=== PATIENT | female | born 1945 | race Caucasian/White ===

== ENCOUNTER → 2017-09-29 13:59 | Outpatient (CLI) | payer OTHER | END | disposition home or self-care (01) | LOC: D.CT 13:59 | DX: K11.9 Disease of salivary gland, unspecified (principal) ==

== ENCOUNTER → 2017-11-13 20:02 | Outpatient (CLI) | payer OTHER | END | disposition home or self-care (01) | LOC: D.MAMMO 10-23 10:00 | DX: N64.4 Mastodynia (principal) ==

== ENCOUNTER → 2018-03-12 17:20 | Outpatient (CLI) | payer OTHER | END | disposition home or self-care (01) | LOC: D.CT 16:30 | DX: S09.90XA Unspecified injury of head, initial encounter (principal); X58.XXXA Exposure to other specified factors, initial encounter ==

== ENCOUNTER 2019-10-10 14:11 | Inpatient (IN) | payer OTHER ==
[~2019-10-10] VITALS: Ht 165.1 cm; Wt 86.5 kg
[2019-10-14] MEDS ORDERED: ASPIRIN325 MG PO (15:30)
[2019-10-14] MEDS ORDERED: CYMBALTA30 MG PO (15:31)
[2019-10-14] MEDS ORDERED: CATAPRES0.1 MG PO (15:31)
[2019-10-14] MEDS ORDERED: SYNTHROID25 MCG PO (15:31)
[2019-10-14] MEDS ORDERED: GLUCOPHAGE1000 MG PO (15:32)
[2019-10-14] MEDS ORDERED: GLIMEPIRIDE2 MG PO (15:32)
[2019-10-14] MEDS ORDERED: LISINOPRIL5 MG PO (15:32)
[2019-10-14] MEDS ORDERED: QVAR REDIHALE10.6 G1 INH (15:55)
[2019-10-14] MEDS ORDERED: VENTOLIN HFA [SP8 GM INH (15:55)
[2019-10-14 17:04] LABS: HEMATOCRIT 44.1 % (36.0-48.0); HEMOGLOBIN 14.2 g/dL (12-16); MCH 30.3 pg (26.0-34.0); MCHC 32.2 g/dL (31.0-37.0); MEAN PLATELET VOLUME 8.5 fL (7.4-10.4); RBC 4.69 10x6/uL (4.00-5.40); RDW 13.1 % (11.5-14.5); WBC 8.8 10x3/uL (4.8-10.8)
[2019-10-14 17:18] LABS: ALBUMIN 3.8 g/dL (3.4-5.0); ANION GAP 8.5 mmol/L (8-16); BILIRUBIN - TOTAL 0.17 mg/dL (0.2-1.3); CARBON DIOXIDE 32.7 mmol/L (21.0-32.0); CREATININE - SERUM 0.9 mg/dL (0.6-1.3); POTASSIUM - SERUM 4.2 mmol/L (3.5-5.1); PROTEIN - SERUM 7.6 g/dL (6.4-8.2)
[2019-10-14 17:22] LABS: APTT 27.8 SECONDS (22.8-39.4); INR 0.84 (0.85-1.17); PROTIME 11.5 SECONDS (11.6-15.0)
[2019-10-14 17:28] LABS: BILIRUBIN NEGATIVE (NEGATIVE); GLUCOSE NEGATIVE (NEGATIVE); KETONE NEGATIVE (NEGATIVE); NITRITE NEGATIVE (NEGATIVE); UROBILINOGEN NORMAL (NORMAL)
[2019-10-16] VITALS (78 sets, daily range): BP systolic 94–173; BP diastolic 36–92; BMI 30.8; BMI 31.7
[2019-10-16] MEDS ORDERED: ACETAMINOPHEN500 M1 PO (05:43)
[2019-10-16] MEDS ORDERED: VITAMIN A10000 UNIT PO (05:44)
[2019-10-16] MEDS ORDERED: VIT B COMPLEX (05:44)
[2019-10-16] MEDS ORDERED: VIT E (05:46)
--- NOTE | 2019-10-16 06:14 | NUR ---
DR MALDONADO NOTIFIED AND REVIEWED PT's BEHAVIOR AND ASSESSMENT RESULTS, PT IS ALOW RISK. DR MALDONADO STATED TO GIVE RESOURCES TO PT AT TIME OF DISCHARGE. NO FURTHER ORDERS AT HIS TIME. RESOURCES REVIEWED WITH PT AND SHE VERBALIZED UNDERSTANDING.
[2019-10-16] MEDS ORDERED: LISINOPRIL5 MG PO (06:15)
[2019-10-16] MEDS ORDERED: [UNRECOGNIZED DRUG - OTHER] (06:16)
[2019-10-16] MEDS ORDERED: GLUCOSAMINE CHON (06:18)
[2019-10-16] MEDS ORDERED: MAGNESIUM OTC (06:19)
--- NOTE | 2019-10-16 09:42 | NUR ---
PT ARRIVED TO CVICU ROOM WITH OR TEAM. PT ATTACHED TO CV MONITORS. WILL CONTINUE TO MONITOR
--- NOTE | 2019-10-16 10:00 | NUR ---
DR PEREZ IN ROOM. UPDATED PT AND FAMILY.
--- NOTE | 2019-10-16 12:40 | NUR ---
PT HAD SMALL AMOUNT OF EMESIS. ZOFRAN GIVEN. WILL CONTINUE TO MONITOR
--- NOTE | 2019-10-16 15:51 | NUR ---
DR PEREZ IN ROOM. STATED TO REMOVE MONITOR FROM FOREHEAD
--- NOTE | 2019-10-16 17:14 | NUR ---
PT HAD MORE EMESIS. CAUGHT IN BLUE BAG. FEELS BETTER NOW. NO COMPLAINTS NOTED.
--- NOTE | 2019-10-16 19:00 | NUR ---
BEDSIDE REPORT AND SHIFT ASSESSMENT COMPLETE, SEE FLOWSHEET. VSS, NO SIGNS OF ACUTE DISTRESS NOTED. R NECK DRESSING CDI, ICE PACK TO SITE. L SUBCLAVIAN CVL PATENT, SEE IV FLOWSHEET. SCD'S AND DALIA'S IN PLACE. ICE CHIPS PROVIDED AT PT REQUEST AND TOLERATED. WILL MONITOR.
--- NOTE | 2019-10-16 19:50 | NUR ---
C/O LEG CRAMPS, PRN MEDS GIVEN PER MAR. PT STATES SHE HAS LEG CRAMPS OFTEN, USUALLY DUE TO LOW MAG LEVEL, STATES SHE TAKES VITAMINS AND USES ESSENTIAL OILS. WILL PASS ALONG IN REPORT.
--- NOTE | 2019-10-16 23:00 | NUR ---
REASSESSMENT COMPLETE, SEE FLOWSHEET. VSS, NO SIGNS OF DISTRESS NOTED. PT RESTING QUIETLY, ICE PACK TO L NECK. DENIES NEEDS AT THIS TIME.
--- NOTE | 2019-10-16 23:35 | NUR ---
PT C/O LEG CRAMPING, STATES ONLY LASTS FOR A FEW SECONDS. DEEP BREATHING ENCOURAGED.
[2019-10-17] VITALS (64 sets, daily range): BP systolic 96–151; BP diastolic 41–70; Ht 165.1 cm; Wt 86.5 kg
--- NOTE | 2019-10-17 01:00 | NUR ---
IS X 10, PT PULLED 750-1000. ICE CHIPS PROVIDED. WILL MONITOR.
--- NOTE | 2019-10-17 05:30 | NUR ---
CHG BATH, LINEN CHANGE, ANDERSON CARE COMPLETE.
--- NOTE | 2019-10-17 05:45 | NUR ---
DAYSI AT BEDSIDE TO PULL MELVIN DRAIN. DRAIN PULLED AND NEW BANDAGE APPLIED.
--- NOTE | 2019-10-17 08:45 | NUR ---
ROZ PEREZ'S NURSE IN ROOM. UPDATE GIVEN. STATED TO START WEANING DOWN DRIPS SO A-LINE COULD BE REMOVED.
--- NOTE | 2019-10-17 11:40 | NUR ---
REMOVED PT ARTERIAL LINE AND CVP MONITOR. PT TOLERATED WELL. OCCLUSIVE DRESSING APPLIED TO RT RADAIL ART LINE SITE. MINIMAL BLEEDING NOTED. WILL CONTINUE TO MONITOR
--- NOTE | 2019-10-17 13:00 | NUR ---
PT UP TO BEDSIDE CHAIR. TOLERATED TRANSITION WELL. NO ACUTE SIGNS OF DISTRESS NOTED. VSS. WILL CONTINUE TO MONITOR
--- NOTE | 2019-10-17 13:35 | NUR ---
PHYSICAL THERAPY IN ROOM GETTING PT READY TO WALK
--- NOTE | 2019-10-17 14:29 | NUR ---
PT BACK IN BED WANTING TO REST. PT STATED THAT SHE DID WANT TO GET BACK IN CHAIR TO EAT DINNER. WILL CONTINUE TO MONITOR
--- NOTE | 2019-10-17 16:24 | NUR ---
FAMILY AT BEDSIDE. NO COMPLAINTS NOTED AT THIS TIME. WILL CONTINUE TO MONITOR
--- NOTE | 2019-10-17 19:10 | NUR ---
PT RECEIVED WITH EYES OPEN. ASSISTED TO BATHROOM URINATION ONLY NOTE. URINE MISSED COLLECTION DEVICE UNABLE TO MEASURE OUTPUT. NO COMPLAINTS OF PAIN OR OTHER NEEDS MADE KNOWN. PT IN CHAIR AT BEDSIDE WATCHING TV. WILL CONTINUE TO OBSERVE.
--- NOTE | 2019-10-17 20:24 | NUR ---
PT ASSISTED TO RESTROOM WITH URINE ONLY NOTED. RETURNED TO BED WITH ICE WATER AND ICE GIVEN. DAUGHTER VISITING AT THIS TIME. PT REPOSITIONED FOR COMFORT. CALL LIGHT IN REACH. WILL CONTINUE TO OBSERVE.
--- NOTE | 2019-10-17 21:01 | NUR ---
PT RESTING WITH EYES CLOSED AND CHEST RISING. EASILY AWOKEN TO VERBAL STIMULI. DAUGHTER REMAINS AT BEDSIDE. NO CONCERNS NOTED. CALL LIGHT IN REACH. WILL CONTINUE TO OBSERVE.
--- NOTE | 2019-10-17 23:45 | NUR ---
PT ASSISTED TO BATHROOM. URINE ONLY. BACK IN BED. NO NEEDS MADE KNOWN. CALL LIGHT IN REACH. WILL CONTINUE TO OBSERVE.
[2019-10-18] VITALS (12 sets, daily range): BP systolic 110–164; BP diastolic 57–81
--- NOTE | 2019-10-18 01:30 | NUR ---
PT ASSISTED UP TO BATHROOM. PT WITH STEADY GAIT. URINE ONLY NOTED. PT BACK IN BED WITH EYES CLOSED AND CHEST RISING AT THIS TIME. CALL LIGHT IN REACH. WILL CONTINUE TO OBSERVE.
--- NOTE | 2019-10-18 03:20 | NUR ---
PT RESTING WITH EYES CLOSED AND CHEST RISING. NO S/S OF DISTRESS. CALL LIGHT IN REACH. WILL CONTINUE TO OBSERVE
--- NOTE | 2019-10-18 06:39 | NUR ---
BATH GIVEN WITH COMPLETE LINEN CHANGE. PT GAVE SELF BATH. B/P INCREASED AND ASSISTED TO CHAIR AND RECHECKED. PRN CLONIDINE GIVEN. NO S/S OF DISTRESS NOTED AT THIS TIME. PT IN BEDSIDE CHAIR. CALL LIGHT IN REACH. WILL CONTINUE TO OBSERVE.
[2019-10-18] MEDS ORDERED: PLAVIX75 MG PO (12:14)
[2019-10-18] MEDS ORDERED: ASPIRIN81 MG PO (12:19)
[2019-10-18] MEDS ORDERED: ULTRAM50 MG PO (12:19)
--- NOTE | 2019-10-18 12:39 | NUR ---
Nutrition Follow-up: POD 2 R carotid endarterectomy. Appetite/PO intake improving. Reports eating >50% of breakfast this AM. No BM yet but passing flatus. Sore throat improving. Diet: Diabetic Wt: 190.6# (3/) Labs reviewed Meds noted: Amaryl, Glucophage, Protonix -Continue current diet. -Encourage PO intake and honor food preferences within diet restrictions. -Monitor wt. -RD following.
--- NOTE | 2019-10-18 15:25 | NUR ---
1215: CENTRAL LINE DC'D. MANUAL PRESSURE HELD X 5 MIN. SITE DRESSED WITH 2X2 AND TEGADERM. 1515: DISCHARGE INSTRUCTIONS REVIEWED WITH PATIENT AND DAUGHTER. 1520: DISCHARGED HOME WITH DAUGHTER. ESCORTED TO VEHICLE IN WHEELCHAIR.
--- NOTE | 2019-10-18 19:02 | OP ---
PATIENT NAME: LENI ADKINS MEDICAL RECORD: [id number] :[birth year] LOCATION:[facility] ADMISSION DATE:10/16/19 SURGEON: KODY PEREZ MD DATE OF OPERATION: 10/16/2019 SURGEON: Kody Perez MD ANESTHESIA: General endotracheal, Dr. Ayala. OPERATION PERFORMED: Right carotid endarterectomy with patch angioplasty. PREOPERATIVE DIAGNOSIS: Severe right internal carotid artery stenosis. POSTOPERATIVE DIAGNOSIS: Severe right internal carotid artery stenosis. INDICATION FOR OPERATION: Severe right internal carotid artery stenosis. FINDINGS AT OPERATION: Severe right internal carotid artery stenosis. There were no EEG changes with clamping or unclamping of the carotid artery. ESTIMATED BLOOD LOSS: Less than 50 mL. DESCRIPTION OF PROCEDURE: After informed consent, adequate preoperative medication evaluation, the patient was brought to the operating room, placed on the table in the supine position. After induction of general endotracheal anesthesia and application of appropriate monitoring devices, the right neck was prepped and draped in a sterile field utilizing ChloraPrep. An oblique incision was made in a skin crease. Dissection carried down the fascia. Hemostasis maintained with electrocautery. Facial vein was identified and divided. Utilizing sharp dissection, the common carotid, internal and external carotid arteries were dissected free of surrounding structures, protecting the neurological structures. The patient was given a calculated dose of heparin after 3 minutes, clamps were applied after 2 minutes, and no EEG changes. The arteriotomy was made and extended with Marr scissors. Artery underwent endarterectomy sharply. Artery underwent extensive debridement and irrigation. Utilizing a CorMatrix vascular patch and running 6-0 Prolene suture, the arteriotomy was closed with a patch angioplasty technique. All maneuvers to remove trapped air were performed. The clamps removed sequentially. There was no EEG change. The patient was given a calculated dose of protamine to reverse the heparin. Hemostasis was achieved. A #7 Kimo-Lee drain was left in depths of wound and brought through the base of the neck. Neck was again irrigated. Instrument count and sponge count were correct times 2. Neck was closed in layers utilizing 3-0 Vicryl on the platysma, 5-0 subcuticular Monocryl on skin. Sterile dressings were applied. The patient tolerated the procedure well and transferred to cardiovascular recovery in satisfactory condition. TRANSINT:[id number] Voice Confirmation ID: [id number] DOCUMENT ID: [id number] OPERATIVE REPORT [id number] LENI ADKINS EDWARD MD at 1902 CC: [id number] DICTATION DATE: 10/16/1936 PATIENT REGISTRATION CLERK: 10/16/19 1125 DIS IN 10/18/[address] [facility] [address] [id number]
--- NOTE | 2019-10-18 21:51 | MORECARE ---
CASE MANAGEMENT DISCHARGE SUMMARY PATIENT: LENI ADKINS UNIT: [id number] ADM DATE: 10/16/19 AGE: 73 : 45 SEX: F ROOM/BED: [facility] AUTHOR: AUBRIE LAWSON PHYSICIAN: REFERRING PHYSICIAN: JANNETH PEREZ MD DATE OF SERVICE: 10/18/19 Discharge Plan Patient Name: LENI ADKINS [facility] [facility] 1945 Planned Disposition: Home Anticipated Discharge Date: Discharge Date: 10/18/2019 Expected LOS: Initial Reviewer: [email or web address] Initial Review Date: 10/16/2019 Generated: 10/18/19 10:51 pm DCPIA - Discharge Planning Initial Assessment Updated by [email or web address]: Brianda North on 10/18/19 9:51 pm * Is the patient Alert and Oriented? Yes * How many steps to enter\exit or inside your home? * PCP ANGIE * Pharmacy [facility] * Preadmission Environment Home Alone * ADLs Independent * Equipment None * List name and contact numbers for known caregivers / representatives who currently or will assist patient after discharge: NOVEMBER SHANEL - [facility] - [phone] * Verbal permission to speak to the caregivers and representatives has been obtained from the patient. Yes * Community resources currently utilized None * Additional services required to return to the preadmission environment? No * Can the patient safely return to the preadmission environment? Yes * Has this patient been hospitalized within the prior 30 days at any hospital? No Patient Name: LENI ADKINS Page [id number] at 2151 All edits/amendments must be made on the electronic document DICTATION DATE: 10/18/192150 LOG LOADER HELPER: LAYNE 10/18/192150 RPT#: [id number] DC DATE:10/18/19 STATUS: DIS IN [address] [address] END OF REPORT
--- NOTE | 2019-10-18 21:58 | MORECARE ---
CASE MANAGEMENT DISCHARGE SUMMARY PATIENT: LENI ADKINS UNIT: [id number] ADM DATE: 10/16/19 AGE: 73 : 45 SEX: F ROOM/BED: [facility] AUTHOR: LULU,DOC PHYSICIAN: REFERRING PHYSICIAN: JANNETH PEREZ MD DATE OF SERVICE: 10/18/19 Discharge Plan Patient Name: LENI ADKINS Facility: [facility]:[place] : 1945 Planned Disposition: Home Anticipated Discharge Date: Discharge Date: 10/18/2019 Expected LOS: Initial Reviewer: [email or web address] Initial Review Date: 10/16/2019 Generated: 10/18/19 10:57 pm Comments DCP- Discharge Planning Updated by [email or web address]: Brianda North on 10/18/19 8:[address] Patient Name: LENI ADKINS Admission Status: Elective Accout number: [id number] Admission Date: 10-16-2019 : 1945 Admission Diagnosis: Attending: JANNETH PEREZ Current LOS: 2 Anticipated DC Date: Planned Disposition: Home Primary Insurance: [employer] Discharge Planning Comments: CM met with patient to complete initial dc planning assessment. CM educated patient on the CM role and verbal consent given by patient to complete assessment. Patient lives at home alone where she is independent with her care. At discharge patient plans to return home and feels this is a safe discharge. CM discussed availability of home health, rehab services, and medical equipment. Her daughter will be her show horse driver home. D/C IMM signed 10/18/19 @1245 Patient denied known discharge needs at this time. CM will continue to follow and will assist as needed with dc plans/needs. Spa Manager: Brianda North DCPIA - Discharge Planning Initial Assessment Updated by [email or web address]: Brianda North on 10/18/19 9:51 pm * Is the patient Alert and Oriented? Yes * How many steps to enter\exit or inside your home? * PCP ANGIE * [place] [facility] [place] * Preadmission Environment Home Alone * ADLs Independent * Equipment None * List name and contact numbers for known caregivers / representatives who currently or will assist patient after discharge: NOVEMBER CANSLER - DAUGHTER - [phone] * Verbal permission to speak to the caregivers and representatives has been obtained from the patient. Yes * Community resources currently utilized None * Additional services required to return to the preadmission environment? No * Can the patient safely return to the preadmission environment? Yes * Has this patient been hospitalized within the prior 30 days at any hospital? No Coverage Notice Reviewer: [email or web address] Mahesh North Notice Issued Date-Time: 10/18/2019 12:45 Notice Type: Medicare Outpatient Observation Notice Notice Delivered To: Patient Relationship to Patient: Self Licensed Surveyor Name: Delivery Method: HAND - Hand Delivered Cassidy Days: Prior Verbal Notification: Recipient Understood Notice: Yes Recipient Signature: Yes Med Rec Note Co-signed by Attending: Coverage Notice Comment: Last DP export: 10/18/19 8:51 pm Patient Name: LENI ADKINS Page [phone] at 2158 All edits/amendments must be made on the electronic document DICTATION DATE: 10/18/192156 MACHINIST/MACHINE BUILDER: LAYNE 10/18/192156 RPT#: [id number] DC DATE:10/18/19 STATUS: DIS IN [facility] [address] [place] [address] END OF REPORT
== END 2019-10-18 15:20 | disposition home or self-care (01) | DRG 39 ==
LOC: D.CVICU 10-16 05:10 → D.SDCHOLD 10-16 05:10 → D.CVICU 10-16 09:48
PROVIDERS: ADMIT Internal Medicine Cardiovascular Disease; ATTEND Internal Medicine Cardiovascular Disease
PROC: 03UK0JZ Supplement Right Internal Carotid Artery with Synthetic Substitute, Open Approach (ICD-10-PCS; 2019-10-16)
PROC: 03CK0ZZ Extirpation of Matter from Right Internal Carotid Artery, Open Approach (ICD-10-PCS; principal; 2019-10-16 07:30)
DX: I65.21 Occlusion and stenosis of right carotid artery (principal); E11.9 Type 2 diabetes mellitus without complications; I10 Essential (primary) hypertension; E03.9 Hypothyroidism, unspecified

== ENCOUNTER 2019-12-10 16:23 | Inpatient (IN) | payer MEDICARE ==
[~2019-12-10 16:23] MED LIST: ACETAMINOPHEN500 M1 PO; ASPIRIN325 MG PO; ASPIRIN81 MG PO; CATAPRES0.1 MG PO; CYMBALTA30 MG PO; GLIMEPIRIDE2 MG PO; GLUCOPHAGE1000 MG PO; GLUCOSAMINE CHON; LISINOPRIL5 MG PO; MAGNESIUM OTC; PLAVIX75 MG PO; QVAR REDIHALE10.6 G1 INH; SYNTHROID25 MCG PO; ULTRAM50 MG PO; VENTOLIN HFA [SP8 GM INH; VIT B COMPLEX; VIT E; VITAMIN A10000 UNIT PO; [UNRECOGNIZED DRUG - OTHER]
[2019-12-10 16:58] LABS: BACTERIA FEW /hpf (NEGATIVE); BILIRUBIN NEGATIVE (NEGATIVE); EPITHELIAL CELLS 0-5 /hpf (0-5); GLUCOSE 1000 mg/dL (NEGATIVE); KETONE NEGATIVE (NEGATIVE); NITRITE NEGATIVE (NEGATIVE); RED CELLS - URINE 0-5 /hpf (0-5); UROBILINOGEN NORMAL (NORMAL); WHITE CELLS - URINE OCC /hpf (NEGATIVE)
[2019-12-10 17:02] LABS: BASOPHILS 0.3 % (0-2); EOSINOPHILS 0.8 % (0-7); HEMATOCRIT 41.9 % (36.0-48.0); HEMOGLOBIN 13.4 g/dL (12-16); IMMATURE GRANULOCYTES 0.2 % (0-5); LYMPHOCYTES 28.8 % (15-50); MCH 29.3 pg (26.0-34.0); MCV 91.5 fL (80.0-100.0); MEAN PLATELET VOLUME 8.7 fL (7.4-10.4); MONOCYTES 8.2 % (2-11); NEUTROPHILS 61.7 % (40-80); RBC 4.58 10x6/uL (4.00-5.40); RDW 12.9 % (11.5-14.5)
[2019-12-10 17:05] LABS: PLATELET COUNT 332 10x3/uL (130-400)
[2019-12-10 17:10] LABS: CALCIUM 9.1 mg/dL (8.5-10.1); CARBON DIOXIDE 25.1 mmol/L (21.0-32.0); CREATININE - SERUM 0.9 mg/dL (0.6-1.3); POTASSIUM - SERUM 4.1 mmol/L (3.5-5.1)
[2019-12-10 17:11] LABS: UDS - AMPHET NEGATIVE QUAL (NEGATIVE); UDS - BARB NEGATIVE QUAL (NEGATIVE); UDS - BENZO NEGATIVE QUAL (NEGATIVE); UDS - COCAINE NEGATIVE QUAL (NEGATIVE); UDS - OPIATE NEGATIVE QUAL (NEGATIVE); UDS - PCP NEGATIVE QUAL (NEGATIVE); UDS - THC NEGATIVE QUAL (NEGATIVE)
[2019-12-10 17:24] LABS: ALBUMIN 3.5 g/dL (3.4-5.0); BILIRUBIN - TOTAL 0.46 mg/dL (0.2-1.3); PROTEIN - SERUM 7.4 g/dL (6.4-8.2); THYROID STIMULATING HORMONE 2.1 uIU/mL (0.36-3.74)
--- NOTE | 2019-12-10 17:45 | NUR ---
SENIOR LIVING STAFF NOTIFIED OF NEED FOR EVALUATION.
--- NOTE | 2019-12-10 19:25 | NUR ---
PATIENT EVALUATED BY ASSISTED NURSE. IV FLUID CHANGED TO N/S BOLAS BY MARTINA MCKENZIE.
[2019-12-10 21:00] VITALS: BP 171/87
[2019-12-10 21:12] VITALS: BP 171/87
[2019-12-11 09:04] VITALS: BP 168/83
[2019-12-11 09:24] LABS: CHOL - HDL RATIO 4.7 ratio (2.3-4.1); CHOLESTEROL, TOTAL 240 mg/dL (0-200); HDL CHOLESTEROL 51 mg/dL (32-96); LDL CHOLESTEROL 165 mg/dL (0-100); LDL-HDL RATIO 3.2 ratio (1.5-3.5); TRIGLYCERIDE 123 mg/dL (30-200)
--- NOTE | 2019-12-11 12:00 | NUR ---
RECEIVED IN HALLWAY OUTSIDE OF NURSES STATION. CALM AND COOPERATIVE WITH CARE AND ASSESSMENT. ANXIOUS AT TIMES. REDIRECT AND REORIENT NEEDED. EATING LUNCH AT THIS TIME. CONTINUE PLAN OF CARE.
[2019-12-11 13:56] VITALS: Wt 76.5 kg
[2019-12-11 20:38] VITALS: BP 174/78
--- NOTE | 2019-12-11 21:15 | NUR ---
B.) PT IS ALERT AND ORIENTED X4. SHE HAS AN OBSESSION WITH PRESYBETERIAN AND INSISTS THAT IF WE WOULD JUST GIVE HER FRAKENSINCE IN HER TEA IN THE MORNING IT WILL CURE ALL AILMENTS. SHE IS ABLE TO AMBULATE WITHOUT ASSIST. SHE IS OBSERVED SOCIALIZING WITH PEERS. SHE IS MONOPOLIZING AT TIMES. SHE IS COOPERATIVE WITH STAFF. I.) PROVDIDED PM MEDICATIONS PRESCRIBED. REDIRECT IF NEEDED. R.) COMPLIANT WITH ALL MEDICATIONS. EASY TO REDIRECT. P.) WILL CONTINUE TO MONITOR.
--- NOTE | 2019-12-11 21:27 | NUR ---
SPOKE WITH PT SON AND DAUGHTER. DAUGHTER VANCE UGARTE WOULD LIKE TO SPEAK WITH DR. MALDONADO. SHE STATES THAT HER MOTHER LENI HAD A CAROTID ARTERY CLEANOUT IN OCTOBER. SHE STATED THAT"MY MOTHER'S HEALTH HAS STARTED TO GO [place], SHE STOPPED TAKING HER DIABETIC MEDICATIONS, STARTED NUREVA AND KETO PILLS THREE WEEKS AGO." PT SON WANTED US TO BE AWARE OF HER NEW ONSET OF INCONT. AND WOULD LIKE US TO LOOK INTO WHY SHE IS HAVING IT ALL OF A SUDDEN.
[2019-12-12 07:11] LABS: RAPID PLASMA REAGIN Non Reactive (Non Reactive)
[2019-12-12 08:56] VITALS: BP 164/92
--- NOTE | 2019-12-12 10:36 | NUR ---
PT IS ALERT AND ORIENTED 4X. PT HAS BEEN STOPPING EVERYONE AND TELLING THEM THEY NEED TO GET THIS STUFF THAT MATT HAS CALLED FRAKENSINCE. JUST PUT A DROP OF THAT YOUR COFFEE AND YOU WILL FEEL GOOD FOR THE REST OF YOUR LIFE. PT INTERACTS WELL WITH PEERS AND STAFF. PT IS VERY PLESANT. PT CAN MAKE NEEDS KNOWN AND AMBULATES WELL. COMPLIANT WITH MEDS, VITALS AND ASSESSMENTS. REDIRECT NEEDED. WILL CONT PLAN OF CARE.
--- NOTE | 2019-12-12 12:54 | NUR ---
THIS NURSE SPOKE WITH VANCE UGARTE. PASSCODE GIVEN. SHE STATED SHE CAME TO THE ER THE OTHER DAY AND WE DIDNT REALIZE SHE HAD HER WALLET WITH HER. WE NEED SOME OF HER INFORMATION TO FILL OUT THE MEDICARE FORMS. SHE SAID SHE NEEDED HER SUPPLEMENTAL, SOCIAL SECURITY, MEDICAID, INSURANCE, FIELD AGENT LICENSE, PHARMACY CARDS SO THAT WE CAN START THE PROCESS. NURSE EXPLAINED THAT WE NEED BELONGINGS TO LOCKBOX BUT I WOULD CHECK IF WE COULD RETRIEVE CERTAIN ITEMS FROM THE LOCKUP. SHE EXPRESSED UNDERSTANDING. SHE ALSO WANTED TO KNOW SHE COULD TALK TO DR. MALDONADO. NURSE EXPLAINED I WOULD LET THE DOCTOR KNOW.
--- NOTE | 2019-12-12 13:01 | PSY ---
PATIENT NAME:LENI ADKINS MEDICAL RECORD: [id number] : [birth year] LOCATION:[facility] ADMISSION DATE: 12/10/19 ACCOUNT: [id number] PSYCHIATRIC EVALUATION DATE OF EVALUATION: 12/11/19 IDENTIFYING DATA: The patient is 73 years old and she is admitted to the hospital on a voluntary basis. CHIEF COMPLAINT: Confusion. HISTORY OF PRESENT ILLNESS: The patient is brought to the hospital Emergency Department by her son. The son had to go all the way to [place], [place] to pick her up. The patient drove to [place] thinking that she was going to see a boyfriend who actually does not exist. She is very insistent that he does. She is denying auditory and visual hallucinations. She is oriented, mostly but clearly is having memory impairment and additionally is having some probable delusions, first of all, about a nonexistent boyfriend, but in the second place, she is telling me that she has to be at her house at 11:00 a.m. on Monday morning because [employer] [place] is coming to the house and is going to give her a check for $100,000 and then she will start receiving $7000 a week for the rest of her life. She is truly believing this is going to happen and she basis it on the fact that she has received a letter saying that she is already a winner. She denies drug and alcohol use. PAST MEDICAL HISTORY: Significant for cataract surgery, diabetes, hypothyroidism, hypertension, carotid stenosis, asthma, tubal ligation and gastroesophageal reflux disease. PAST PSYCHIATRIC HISTORY: Denied by the patient. FAMILY HISTORY: Significant for cancer, hypertension and diabetes. ALLERGIES: IODINE. CURRENT MEDICATIONS: Include Plavix, aspirin, Ultram, Synthroid, Catapres, Cymbalta, Amaryl, Glucophage, and lisinopril. SOCIAL HISTORY: The patient is . She is Rastafarian. She has a high school education and was employed as a hairdresser. She has adult children who are involved with her care. MENTAL STATUS EXAMINATION: The patient is awake, alert and oriented to person, place and somewhat to time and somewhat to situation. Her mood is euthymic. Her affect is appropriate. Thought processes are somewhat circumstantial. Memory, concentration, and abstraction abilities are impaired and she denies that she would seek to harm herself or others as well as psychotic symptoms. ASSETS: Supportive family members. LIABILITIES: Limited insight. DIAGNOSTIC IMPRESSION: AXIS I: Major vascular neurocognitive disorder. AXIS II: Deferred. AXIS III: Diabetes, hypertension, hypothyroidism, carotid stenosis, osteoarthritis, gastroesophageal reflux disease, and cataracts. AXIS IV: Moderate. AXIS V: Global assessment of functioning is 40. PLAN: The patient is admitted to the hospital secondary to a disruptive behaviors associated with a dementing illness. She will be comprehensively evaluated from both a medical, psychological, and social standpoint. She will be treated with both mood stabilizing and memory enhancing medications. Her long-term prognosis is guarded. TRANSINT:[id number] Voice Confirmation ID: [id number] DOCUMENT ID: [id number] TAMRA MALDONADO MD at 1301 CC: [id number] DICTATION DATE: 12/11/191657 PAPER CONE DRYING MACHINE OPERATOR: 12/11/19 1756 ADM IN [address] [place] [place] [address]
--- NOTE | 2019-12-12 14:43 | NUR ---
Nutrition Follow-up: Eating well. Diet: Diabetic PO intake: 98% avg x 3 meals Wt: 177# (12/11) Last BM: 12/11 per chart Labs noted: Glu 192 Meds noted: Humalog, Glucophage, Amaryl, Pepcid -Monitor wt. -RD following.
--- NOTE | 2019-12-12 16:19 | NUR ---
SPOKE WITH PT SON IN REGARDS TO PT WALLET AND THE ITEMS NEEDED FROM HER WALLET TO FILL OUT PAPERWORK. SON STATED HE WAS FROM OUT [place] STATE AND HE DIDNT WANT TO BE RUDE AND ALVARADO US FOR THE ITEMS. NURSE EXPLAINED SHE HAD SPOKEN WITH VANCE EARLIER THIS SHIFT ABOUT SITUATION. NURSE WAS ABLE TO SPEAK WITH NURSE REDUCTION FURNACE OPERATOR ABOUT HOW TO PROCEED WITH OBTAINING ITEMS. HE WOULD HAVE TO COME TO THE E.D. AND SPEAK WITH SOMEONE TO GET THE ITEMS. HE VERBALIZIED UNDERSTANDING.
--- NOTE | 2019-12-12 18:29 | NUR ---
PT CONTS TO TELL OTHER PTS THAT 4 OF THEM ARE LEAVING. NURSE AND STAFF HAVE REDIRECTED PT BEHAVIOR MULTIPLE TIMES THIS SHIFT. PT WAS SPEAKING TO A MALE PT AND STATED "I'M GOING TO SLAP YOU." UNAWARE OF WHAT MALE PT SAID BUT STAFF REDIRECTED BEHAVIOR AND TOLD PT WE CAN NOT SPEAK TO EACH OTHER THAT WAY AND NURSE PTS. PT CAN GET VERY AGITATED QUICKLY AT TIMES. STAFF CONTS TO REDIRECT BEHAVIOR.
[2019-12-12 19:32] VITALS: BP 131/63
--- NOTE | 2019-12-12 21:06 | NUR ---
B.) PT IS ALERT AND ORIENTED TO SELF AND PLACE. SHE HAS POOR INSIGHT INTO HER SITUATION. SHE IS UNDER THE IMPRESSION THESE ARE APARTMENTS AND HER AND THE PEERS ARE FREE TO LEAVE IN THE MORNING TO GET BREAKFAST. SHE IS ABLE TO AMBULATE WITHOUT ASSIST AND VOICE NEEDS AND WANTS. I.) PROVIDED PM MEDICATIONS PRESCRIBED. REDIRECT NEEDED. R.) COMPLIANT WITH ALL MEDICATIONS. EASY TO REDIRECT. P.) WILL CONTINUE TO MONITOR.
[2019-12-13 08:41] VITALS: BP 124/70
--- NOTE | 2019-12-13 09:22 | NUR ---
The patient is delusional, she is speaking about Frankinsense and how it heals everything. She also says she has won the [employer] and she expects it today. She asked "What does this unit need?" Staff said "A patio." She said "Well, I see a lot of things you needs and I would like to buy those things for you with my money." The patient is intrusive and she gets in everyone elses business. She also tries to boss the other patients around. She ambulates independently. Provide prescribed meds. The patient is compliant with meds. She has told staff that other patients are leaving today. She is oriented x3, but she has poor insight into her situation. Continue POC.
--- NOTE | 2019-12-13 11:02 | NUR ---
The patient is telling staff and other patients that she has to go she is having a alliance party at 1200 and she said "I've been released and I need to go." Tried to explain to her that she has no orders so I can not release her. She then began talking about the city inside [place] is now called [place], she said "I know I couldn't believe it, but if I picked up a phone, it would say [place]." Redirected her to explain that [place] is close to [place]. She said I know, but now it's right outside of [place].
[2019-12-13 19:49] VITALS: BP 159/81
--- NOTE | 2019-12-13 20:29 | NUR ---
PATIENT IS CONFUSED, SHE SAYS THAT HER MEDICINE HAS BEEN HERE SINCE MATT WAS A BABY AND MATT STARTED TALKING TO HER WHEN SHE STARTED USING THE MEDICINE. SHE IS KIND TO OTHERS AND IS HELPFUL. COMPLIANT WITH MEDS. WILL FOLLOW POC
[2019-12-14 07:45] VITALS: BP 154/80
--- NOTE | 2019-12-14 11:17 | NUR ---
The patient is awake and alert, she still believes she is leaving today. She said "My son is calling administration and he will get me out of here." She is quite bossy with the other patient's and she can be demanding. Provide prescribed meds. The patient is compliant with meds. She continues to tell everyone that "If you put a little Frankensence in your drink you will be able to talk to God and if you go on a Keto diet you can lose 30 lbs. in a month." Continue POC.
[2019-12-14 19:32] VITALS: BP 120/68
--- NOTE | 2019-12-14 23:28 | NUR ---
B)RECEIVED PATIENT SITTING IN THE DAYROOM TO HERSELF. WITHDRAWN. WHEN A PATIENT TOLD HER SHE COULD COME AND SIT WITH THEM SHE TOLD THEM SHE WAS GOING TO GO TO BED. CONFUSED AND DISORIENTED. RELATED "HAD A LITTLE SLIP OF MEMORY AND ENDED UP IN [place] THEY CALL IT [facility]. THERE WAS A HUGE AMBULANCE, ONE SMALL AMBULANCE AND 2 SMALL AMBULANCES THAT CAME TO GET ME. IT WAS LIKE THE [facility]." RELATES SHE HAD 12 BOWEL MOVEMENTS LAST NIGHT AND 4 TODAY BECAUSE SHE IS ON A COLON CLEANSE. "WHEN I STARTED MY DIET I WAS ON THE POT FOR 2 HOURS." THEN STARTED TALKING ABOUT HAVING VEHCLE BREAKDOWNS. FLIGHT OF IDEAS AND DELUSIONAL. I)ADMINISTER MEDS AND MONITOR COMPLIANCE. REORIENT WITH REALITY BASED INFORMATION. R)MED COMPLIANT. DIFFICULTY WITH REORIENTATION DUE TO IMPAIRED ABILITY TO SEPARATE REALITY FROM FANTASY. P)CONTINUE POC AND PROVIDE SAFE ENVIRONMENT.
[2019-12-15 08:31] VITALS: BP 141/76
--- NOTE | 2019-12-15 12:00 | NUR ---
RECEIVED IN HALLWAY OUTSIDE OF NURSES STATION. CALM AND COOPERATIVE WITH CARE AND ASSESSMENT. CONFUSED. NO BEHAVIORS. REDIRECT AND REORIENT NEEDED. EATING LUNCH AT THIS TIME. CONTINUE PLAN OF CARE.
--- NOTE | 2019-12-15 16:26 | PN ---
PATIENT:LENI ADKINS MEDICAL RECORD: [id number] LOCATION:[facility] ADMISSION DATE: 12/10/19 PROGRESS NOTE DATE OF SERVICE: 12/12/2019 SUBJECTIVE: The patient's case was discussed with staff. She has no new complaint. OBJECTIVE: The patient denies intent to harm herself or others. She is tolerating her medicines well. ASSESSMENT: Dementia. PLAN: Current medicines have been reviewed. She will be maintained on risperidone for its antipsychotic effect. TRANSINT:[id number] Voice Confirmation ID: [id number] DOCUMENT ID: [id number] TAMRA MALDONADO MD at 1626 CC: [id number] DICTATION DATE: 12/12/19 175 BUSINESS MANAGER: 12/12/19 2334 ADM IN [id number] [place] [address]
--- NOTE | 2019-12-15 19:19 | NUR ---
RECEIVED IN DAYROOM. SITTING IN A CHAIR WITH PEERS AT HER SIDE. CALM AND COOPERATIVE WITH CARE AND ASSESSMENT. ENCOURAGE TO EXPRESS NEEDS. REDIRECT AND REORIENT NEEDED. CONTINUES TO SIT CALMLY IN DAYROOM. CONTINUE PLAN OF CARE.
[2019-12-15 19:28] VITALS: BP 113/61
[2019-12-16 08:43] VITALS: BP 140/70
--- NOTE | 2019-12-16 12:00 | NUR ---
RECEIVED IN HALLWAY OUTSIDE OF NURSES STATION. CALM AND COOPERATIVE WITH CARE AND ASSESSMENT. NO BEHAVIORS. REDIRECT AND REORIENT NEEDED. EATING LUNCH AT THIS TIME. CONTINUE PLAN OF CARE.
--- NOTE | 2019-12-16 14:35 | NUR ---
SERGIO SPOKE WITH DTR, VANCE, TO DISCUSS DISCHARGE PLANNING NEEDS. PT WILL GO TO [facility]. VANCE VERBALIZED UNDERSTANDING OF DISCUSSION
[2019-12-16 19:22] VITALS: BP 83/45
--- NOTE | 2019-12-16 19:43 | NUR ---
RECEIVED IN DAYROOM. SITTING IN A CHAIR WITH PEERS AT HER SIDE. CALM AND COOPERATIVE WITH CARE AND ASSESSMENT. ENCOURAGE TO EXPERSS NEEDS. REDIRECT AND REORIENT NEEDED. CONTINUES TO REST QUIETLY IN DAYROOM. CONTINUE PLAN OF CARE.
[2019-12-17 07:47] VITALS: BP 150/60
--- NOTE | 2019-12-17 08:30 | NUR ---
RECEIVED IN HALLWAY OUTSIDE OF NURSES STATION. CALM AND COOPERATIVE WITH CARE AND ASSESSMENT. NO BEHAVIORS. REDIRECT AND REORIENT NEEDED. EATING BREAKFAST AT THIS TIME. CONTINUE PLAN OF CARE.
--- NOTE | 2019-12-17 11:32 | PN ---
PATIENT:LENI ADKINS MEDICAL RECORD: [id number] LOCATION:[facility] ADMISSION DATE: 12/10/19 PROGRESS NOTE DATE OF SERVICE: 12/16/2019 SUBJECTIVE: The patient's case was discussed with staff. She has no new complaint. OBJECTIVE: The patient experienced significant agitated behavior, particularly at night. She tells me that she has got to leave the hospital soon again because the [employer] clearing house people are coming to her house. She does remain delusional in this regard. ASSESSMENT: Dementia. PLAN: The patient's risperidone was going to be increased along with her Namenda. Her long-term prognosis is guarded. The Risperdal is being used to treat the delusions and the Namenda is being used to treat the underlying dementing illness. It seems fairly clear that she is going to require 57-vbxi-x-day supervision. TRANSINT:[id number] Voice Confirmation ID: [id number] DOCUMENT ID: [id number] TAMRA MALDONADO MD at 1132 CC: [id number] DICTATION DATE: 12/16/19 1518 TUNNEL KILN OPERATOR: 12/16/191952 ADM IN [facility] [address] [place] [address]
[2019-12-17 19:43] VITALS: BP 121/58
--- NOTE | 2019-12-17 19:43 | NUR ---
REECIVED IN DAYROOM. SITTING IN A CHAIR WITH PEERS AT HER SIDE. SOCIAL WITH STAFF AND PEERS. CALM AND COOPERATIVE WITH CARE AND ASSESSMENT. ENCOURAGE TO EXPRESS NEEDS. CONTINUES TO SIT CALMLY IN DAYROOM. CONTINUE PLAN OF CAER.
[2019-12-18 08:15] VITALS: BP 110/67
--- NOTE | 2019-12-18 10:17 | PN ---
PATIENT:LENI ADKINS MEDICAL RECORD: [id number] LOCATION:[facility] ADMISSION DATE: 12/10/19 PROGRESS NOTE DATE OF SERVICE: 12/17/2019 SUBJECTIVE: The patient's case was discussed with staff. She has no new complaint. OBJECTIVE: The patient denies intent to harm herself or others. She is delusional. She continues to believe that the [employer] clearing [employer] people are about to come to her house and she needs to be discharged immediately. IMPRESSION: Vascular dementia. PLAN: The patient had medication changes yesterday that have not had an opportunity to have any effect. She will be monitored for clinical changes with that increase in her Risperdal and the increase in her Namenda. She will be monitored for clinical changes. TRANSINT:[id number] Voice Confirmation ID: [id number] DOCUMENT ID: [id number] TAMRA MALDONADO MD at 1017 CC: [id number] DICTATION DATE: 12/17/19 1228 LUBRICATING MACHINE TENDER: 12/17/19 1835 ADM IN [facility] [address] [id number]
--- NOTE | 2019-12-18 10:37 | NUR ---
The patient continues to boss other patients around and tries to tell staff what they should be doing. She redirects easily though. She says "I can't wait to come back and visit as I know everyone will have lost 30 pounds by then, following that KETO." The patient remains focused on KETO, but she has not mentioned [employer] this am. She ambulates independently. Provide prescribed meds. Continue POC.
--- NOTE | 2019-12-18 13:12 | NUR ---
Nutrition Follow-up: Overall PO intake remains good. Ate 90-100% of meals yesterday. Diet: Diabetic PO intake: 82% avg x 9 meals Wt: 178.8# (12/14); 177# (12/11) Last BM: 12/16 Labs noted: Glu 121 Meds noted: Amaryl, Senokot, Humalog, Pepcid, Glucophage -Encourage PO intake and honor food preferences within diet restrictions. -Monitor wt. -RD following.
--- NOTE | 2019-12-18 15:45 | NUR ---
PT DAUGHTER CALLED AND WANTED TO KNOW IF HER MOM WAS DISCHARGING AND WHEN. PASSCODE GIVEN. CONFIRMED DATE OF DISCHARGE AND PLACE OF DISCHARGE. WILLIAM RUIZ CAME TO [facility] THIS SHIFT. THANKED NURSE.
[2019-12-18 20:30] VITALS: BP 140/80
--- NOTE | 2019-12-18 21:20 | NUR ---
PATIENT IS INTRUSIVE WITH STAFF AND OTHER RESIDENTS, HYPERRELIGIOUS, NO INSIGHT, COMPLIANT WITH MEDS, WILL FOLLOW POC
[2019-12-19 08:16] VITALS: BP 162/80
--- NOTE | 2019-12-19 08:27 | PN ---
PATIENT:LENI ADKINS MEDICAL RECORD: [id number] LOCATION:[facility] ADMISSION DATE: 12/10/19 PROGRESS NOTE DATE OF SERVICE: 12/18/2019 SUBJECTIVE: The patient's case was discussed with staff. She has no new complaint. OBJECTIVE: The patient is in good behavioral control. She has limited insight about her situation. She insists that she can drive and is distressed when I tell her that she should not be driving anymore. She says she will follow up in my recommendation, but I do not believe that she is going to in the long run. To clarify that I think she is sincere, although upset when she says she would not drive anymore, but I think in her own mind she really believe she is capable of doing so and given the opportunity in the future, she may will attempt to do so. ASSESSMENT: Vascular dementia. PLAN: The patient is going to be transferred to the group living situation on Monday. One of the personal senior care representatives has been here and spoken with her and they are willing to accept her and she is willing to go there. TRANSINT:[id number] Voice Confirmation ID: [id number] DOCUMENT ID: [id number] TAMRA MALDONADO MD at 0827 CC: [id number] DICTATION DATE: 12/18/19 1439 GAS APPLIANCE INSTALLER: 12/18/19 1707 ADM IN [facility] [address] [place] [address]
[2019-12-19 08:59] VITALS: BP 162/80
--- NOTE | 2019-12-19 11:12 | NUR ---
The patient is awake and she is oriented times 3, she continues to have some delusions about a boyfriend and how the KETO diet will save your life and hyper religiosity. Provide prescribed meds. The patient is compliant with meds. The patient needs redirection at times as she tries to boss other patients and she touches others. Continue POC.
[2019-12-19] MEDS ORDERED: LIPITOR10 MG PO (15:45)
[2019-12-19] MEDS ORDERED: RisperDAL PO (15:46)
[2019-12-19] MEDS ORDERED: INVOKANA100 MG PO (15:46)
[2019-12-19] MEDS ORDERED: Senokot TAB PO (15:46)
[2019-12-19] MEDS ORDERED: NAMENDA5 MG PO (15:46)
[2019-12-19] MEDS ORDERED: LISINOPRIL10 MG PO (15:46)
[2019-12-19] MEDS ORDERED: PEPCID PO (15:46)
[2019-12-19] MEDS ORDERED: GLIMEPIRIDE1 MG PO (15:47)
[2019-12-19] MEDS ORDERED: ANUSOL-HC 2.5%30 GM RC (15:47)
[2019-12-19 20:25] VITALS: BP 142/65
--- NOTE | 2019-12-19 22:11 | NUR ---
B)RECEIVED SITTING IN THE DAYROOM. ALERT AND ORIENTED X3. RELATES THE REASON FOR HOSPITALIZATION IS "INCREASED BLOOD SUGAR." CALM AND COOPERATIVE. RELATES IS GOING HOME TOMORROW. I)ADMINSITER MEDS AND MONITOR COMPLIANCE. R)MED COMPLIANT. P)CONTINUE POC AND PROVIDE SAFE ENVIRONMENT.
--- NOTE | 2019-12-20 07:53 | NUR ---
The patient is awake and alert, she is pleasant and calm. She is dcing today. She is going to [employer] today. She is ambulating independently. She only has one outfit., dc paperwork faxed to PCP. Continue d/c plan.
[2019-12-20 09:39] VITALS: BP 144/70
--- NOTE | 2019-12-20 10:08 | NUR ---
The patient's son called and he said he would like to make a complaint and did not know how to go about it. He said "Well, let me ask you." He asked about his Mom having surgery and how now she has declined in her memory. Explained to him that it can happen after anesthesia if the individual had dementia prior to surgery it can worsen it rapidly. He said he would like to speak to [employer] and [facility] [employer].
--- NOTE | 2019-12-20 13:11 | NUR ---
The patient's daughter is here to pick her up to go to [employer]. Explained the medications with the patient and the daughter. The patient is now d/c'd from detention. Assisted her to her daughters vehicle.
--- NOTE | 2019-12-23 13:22 | PN ---
PATIENT:LENI ADKINS MEDICAL RECORD: [id number] LOCATION:[facility] ADMISSION DATE: 12/10/19 PROGRESS NOTE DATE OF SERVICE: 12/19/2019 SUBJECTIVE: The patient's case was discussed with staff. She has no new complaint. OBJECTIVE: The patient is much better organized. She is denying that she would seek to harm herself or others. She still has the delusions about winning the sweepstakes, but she is not nearly as intrusive and demanding about it. ASSESSMENT: Vascular dementia. PLAN: The patient is going to be discharged tomorrow. Her long-term prognosis is guarded. TRANSINT:[id number] Voice Confirmation ID: [id number] DOCUMENT ID: [id number] TAMRA MALDONADO MD at 1322 CC: [id number] DICTATION DATE: 12/19/19 1544 COMMONWEALTH ATTORNEY: 12/19/19 1749 DIS IN 12/20/19 [id number] [place] [address]
== END 2019-12-20 13:13 | disposition home or self-care (01) | DRG 57 ==
LOC: D.ER 16:23 → D.PSYCH 20:13
PROVIDERS: Family Medicine; ADMIT Psychiatry & Neurology Psychiatry; ATTEND Psychiatry & Neurology Psychiatry
DX: I69.819 Unspecified symptoms and signs involving cognitive functions following other cerebrovascular disease (principal); F01.51 Vascular dementia, unspecified severity, with behavioral disturbance; E11.9 Type 2 diabetes mellitus without complications; I10 Essential (primary) hypertension; E03.8 Other specified hypothyroidism; E06.3 Autoimmune thyroiditis; F41.8 Other specified anxiety disorders; K21.9 Gastro-esophageal reflux disease without esophagitis; R32 Unspecified urinary incontinence; E78.00 Pure hypercholesterolemia, unspecified

== ENCOUNTER → 2020-03-12 09:02 | Outpatient (CLI) | payer OTHER ==
[2019-12-11 13:56] VITALS: BMI 29.5
[~2020-03-12 09:02] MED LIST changes: +ANUSOL-HC 2.5%30 GM RC; +GLIMEPIRIDE1 MG PO; +INVOKANA100 MG PO; +LIPITOR10 MG PO; +LISINOPRIL10 MG PO; +NAMENDA5 MG PO; +PEPCID PO; +RisperDAL PO; +Senokot TAB PO
== END | disposition home or self-care (01) ==
LOC: D.RAD 03-11 08:30
PROVIDERS: ATTEND Internal Medicine Gastroenterology
DX: R93.3 Abnormal findings on diagnostic imaging of other parts of digestive tract (principal)

== ENCOUNTER 2020-05-29 14:45 | Outpatient (CLI) | payer OTHER ==
[2019-12-11 13:56] VITALS: BMI 29.5
== END 2020-05-29 16:00 | disposition home or self-care (01) ==
LOC: D.MAMMO 14:45
PROVIDERS: ATTEND Nurse Practitioner Family
DX: Z12.31 Encounter for screening mammogram for malignant neoplasm of breast (principal)